=== PATIENT | female | born 1950 | race Caucasian/White ===

== ENCOUNTER 2018-03-26 23:50 | Emergency (ER) | payer OTHER ==
[~2018-03-26] VITALS: Ht 157.5 cm; Wt 95.5 kg
[2018-03-27 00:09] LABS: GLUCOSE,POINT OF CARE 117 MG/DL (70-110)
[2018-03-27] MEDS ORDERED: NIFE90TA45 PO (00:27)
[2018-03-27] MEDS ORDERED: LISI-661 PO (00:29)
[2018-03-27] MEDS ORDERED: METF-960 PO (00:30)
[2018-03-27] MEDS: KETOROLAC TROMETHAMINE 60 MG/2 ML VIAL IM ONE (00:46)
[2018-03-27] MEDS: NIFEdipine 90 MG ER TABLET PO ONE (00:46)
[2018-03-27 02:00] VITALS: BP 183/92
== END 2018-03-27 02:02 | disposition home or self-care (01) ==
LOC: EMS 23:52
DX: I10 Essential (primary) hypertension (principal); E11.9 Type 2 diabetes mellitus without complications; Z79.899 Other long term (current) drug therapy; Z79.84 Long term (current) use of oral hypoglycemic drugs
CPT/HCPCS: 82962; 96372; 99283; J1885

== ENCOUNTER 2020-02-12 17:13 | Emergency (ER) | payer OTHER ==
[~2020-02-12] VITALS: Ht 157.5 cm; Wt 90.9 kg
[~2020-02-12 17:13] MED LIST: LISI-661 PO; METF-960 PO; NIFE90TA45 PO
[2020-02-12] MEDS ORDERED: LISI-662 PO (17:28)
[2020-02-12] MEDS ORDERED: LOVA10TA2 PO (17:28)
[2020-02-12 18:17] LABS: BASOPHILS % (AUTO) 0.8 % (0.0-2.0); EOSINOPHILS % (AUTO) 2.9 % (1.0-6.0); HEMATOCRIT 37.7 % (36-46); HEMOGLOBIN 13.2 g/dL (12.0-16.0); LYMPHOCYTES # (AUTO) 2.3 K/uL (1.0-4.8); LYMPHOCYTES % (AUTO) 23.1 % (22.0-44.0); MEAN CORPUSCULAR HEMOGLOBIN 30.8 pg (26.0-34.0); MEAN CORPUSCULAR VOLUME 88 fL (80-100); MONOCYTES # (AUTO) 0.7 K/uL (0.1-1.0); MONOCYTES % (AUTO) 6.6 % (2.0-9.0); NEUTROPHILS # (AUTO) 6.6 K/uL (1.8-7.7); NEUTROPHILS % (AUTO) 66.6 % (40.0-70.0); PLATELET COUNT (AUTO) 263 K/uL (150-450); RED BLOOD CELL COUNT(AUTO) 4.28 MIL/uL (4.00-5.20); RED CELL DISTRIBUTION WIDTH 14.5 % (11.5-14.5)
[2020-02-12 18:26] LABS: CALCIUM, TOTAL 9.9 mg/dL (8.8-10.5); CREATININE 1.25 mg/dL (0.60-1.30); POTASSIUM 4.2 mmol/L (3.5-5.1)
[2020-02-12 18:33] LABS: BILIRUBIN,TOTAL 0.3 mg/dL (0.1-1.0); TOTAL PROTEIN, SERUM 8.1 g/dL (6.4-8.2)
[2020-02-12 20:00] VITALS: BP 145/70
== END 2020-02-12 20:00 | disposition home or self-care (01) ==
LOC: EMS 17:13
DX: R07.89 Other chest pain (principal); E11.9 Type 2 diabetes mellitus without complications; I10 Essential (primary) hypertension; Z79.84 Long term (current) use of oral hypoglycemic drugs; Z79.899 Other long term (current) drug therapy
CPT/HCPCS: 93005; 36415-L1; 36415-TC; 71045-TC